=== PATIENT | male | born 1975 | race Caucasian/White ===

== ENCOUNTER 2020-12-24 15:11 | Emergency (ER) | payer OTHER ==
--- NOTE | 2020-12-24 16:04 | EDM.PDOC ---
ED HPI GENERAL MEDICAL PROBLEM - General Stated Complaint: POSSIBLE EYE INFECTION Time Seen by Provider: 12/24/20 15:35 - History of Present Illness INITIAL COMMENTS - FREE TEXT/NARRATIVE: Red Rt eye since yesterday. He thought he had a bug in his eye at first, but not sure. He did flush the eye yesterday. Today the eye is getting more red and is slight irritating with a small amount of drainage. No injury to his eye. ED ROS GENERAL - Review of Systems Review Of Systems: Comprehensive ROS is negative, except as noted in HPI. HEENT: Reports: Other (Red Rt eye.) ED EXAM, GENERAL - Physical Exam Exam: See Below Eye Exam: Right Eye: Other (Sclera is red. No FB noted. Small amount of matter at the medial canthus.) Departure - Departure Time of Disposition: 15:45 Disposition: Home, Self-Care 01 Condition: Good Clinical Impression: Conjunctivitis Qualifiers: Conjunctivitis type: acute Acute conjunctivitis type: bacterial Laterality: right Qualified Code(s): H10.31 - Unspecified acute conjunctivitis, right eye - Discharge Information Instructions: Bacterial Conjunctivitis, Adult Referrals: PCP,None [Primary Care Provider] - Additional Instructions: Eye drops 4 times a day to affected eye for 7 days
== END 2020-12-24 15:48 | disposition home or self-care (01) ==
LOC: LB.ED 15:11
DX: H10.021 Other mucopurulent conjunctivitis, right eye (principal)
CPT/HCPCS: 99282